=== PATIENT | female | born 1940 | race Hispanic/Latino ===

== ENCOUNTER 2018-08-19 13:04 | Outpatient (CLI) | payer MEDICARE | END 2018-08-19 13:05 | disposition home or self-care (01) | LOC: LAB 13:04 ==

== ENCOUNTER 2018-09-28 12:42 | Outpatient (CLI) | payer MEDICARE | END 2018-09-28 12:43 | disposition home or self-care (01) | LOC: LAB 12:42 ==

== ENCOUNTER 2018-10-26 10:14 | Outpatient (CLI) | payer MEDICARE | END 2018-10-26 10:15 | disposition home or self-care (01) | LOC: LAB 10:14 ==

== ENCOUNTER 2018-11-07 09:53 | Outpatient (CLI) | payer MEDICARE | END 2018-11-07 09:54 | disposition home or self-care (01) | LOC: LAB 09:53 ==